=== PATIENT | male | born 1955 | race Two or more races ===

== ENCOUNTER 2022-09-10 23:10 | Inpatient (IN) | payer OTHER ==
[~2022-09-10] VITALS: Ht 177.8 cm; Wt 59.0 kg
[2022-09-10 23:47] LABS: BASOPHILS % (AUTO) 0.5 % (0.0-2.0); EOSINOPHILS % (AUTO) 6.3 % (1.0-6.0); HEMATOCRIT 42.3 % (41-53); HEMOGLOBIN 13.9 g/dL (13.5-17.5); LYMPHOCYTES # (AUTO) 2.6 K/uL (1.0-4.8); LYMPHOCYTES % (AUTO) 39.8 % (22.0-44.0); MEAN CORPUSCULAR HEMOGLOBIN 29.3 pg (26.0-34.0); MEAN CORPUSCULAR HGB CONC 32.8 G/dL (31.0-37.0); MEAN CORPUSCULAR VOLUME 89 fL (80-100); MONOCYTES # (AUTO) 0.7 K/uL (0.1-1.0); NEUTROPHILS # (AUTO) 2.8 K/uL (1.8-7.7); NEUTROPHILS % (AUTO) 43.4 % (40.0-70.0); PLATELET COUNT (AUTO) 245 K/uL (150-450); RED BLOOD CELL COUNT(AUTO) 4.75 MIL/uL (4.50-5.90); RED CELL DISTRIBUTION WIDTH 15.1 % (11.5-14.5)
[2022-09-11] LABS: ANION GAP 8 mmol/L (8-16); CALCIUM, TOTAL 9.6 mg/dL (8.8-10.5); CARBON DIOXIDE 31 mmol/L (22-29); CHLORIDE 101 mmol/L (98-107); CREATININE 1.17 mg/dL (0.60-1.30); GLOMERULAR FILTR. RATE CALC > 60 mL/min (>60); GLUCOSE,RANDOM 96 mg/dL (70-110); POTASSIUM 3.9 mmol/L (3.5-5.1); SODIUM SERUM 140 mmol/L (136-145)
[2022-09-11] MEDS ORDERED: ONDANSETRON HCL 4 MG/2 ML VIAL IVP ONE
[2022-09-11 00:06] LABS: ALANINE AMINOTRANSFERASE 32 U/L (12-78); ALBUMIN 3.7 g/dL (3.4-5.0); ALKALINE PHOSPHATASE 101 U/L (46-116); ASPARTATE AMINOTRANSFERASE 37 U/L (15-37); BILIRUBIN,TOTAL 0.4 mg/dL (0.1-1.0); LIPASE 93 U/L (73-393); TOTAL PROTEIN, SERUM 7.8 g/dL (6.4-8.2)
[2022-09-11] MEDS ORDERED: SODIUM CHLORIDE 0.9% 100 ML ONE (00:15)
[2022-09-11] MEDS ORDERED: IOHEXOL 350 MG/ML 100 ML VIAL ONE (00:15)
[2022-09-11 00:23] LABS: LACTIC ACID 0.7 mmol/L (0.4-2.0)
[2022-09-11] MEDS ORDERED: SODIUM CHLORIDE 0.9% 1,000 ML IV ONE ×3 (01:00)
[2022-09-11] MEDS ORDERED: METOCLOPRAMIDE HCL 5 MG/ML 2 ML VIAL IVP PRN (04:15)
[2022-09-11] MEDS: RINGERS SOLUTION,LACTATED 1,000 ML IV SCH ×2 (04:46→14:15)
[2022-09-11] MEDS: MORPHINE SULFATE 2 MG/ML SYRINGE IVP PRN ×2 (04:46→21:25)
[2022-09-11] MEDS: ONDANSETRON HCL 4 MG/2 ML VIAL IVP PRN (04:47)
[2022-09-11] MEDS ORDERED: IPRATROPIUM BROMIDE 0.5 MG/2.5 ML NEB SOLUTION NEB PRN (05:00)
[2022-09-11] MEDS ORDERED: ALBUTEROL SULFATE 2.5 MG/0.5 ML NEB SOLUTION NEB PRN (05:00)
[2022-09-11 05:04] LABS: APPEARANCE,URINE CLEAR (CLEAR); BILIRUBIN,URINE NEGATIVE (NEGATIVE); GLUCOSE, URINE (UA) NEGATIVE (NEGATIVE); KETONES,URINE NEGATIVE (NEGATIVE); LEUKOCYTE ESTERASE ,URINE NEGATIVE (NEGATIVE); NITRATE,URINE NEGATIVE (NEGATIVE); OCCULT BLOOD,URINE NEGATIVE (NEGATIVE); PH,URINE 6.5 (5.0-8.0); PROTEIN,URINE TRACE mg/dL (NEGATIVE); UROBILINOGEN,URINE <=1.0 mg/dL (<=1.0)
[2022-09-11 05:11] LABS: AMPHET/METH SCREEN,URINE NEGATIVE (NEGATIVE); BARBITURATE SCREEN, URINE NEGATIVE (NEGATIVE); BENZODIAZEPINES SCREEN,URINE NEGATIVE (NEGATIVE); CANNABINOID SCREEN,URINE NEGATIVE (NEGATIVE); COCAINE SCREEN,URINE NEGATIVE (NEGATIVE); METHADONE SCREEN, URINE NEGATIVE (NEGATIVE); OPIATE SCREEN,URINE NEGATIVE (NEGATIVE); PHENCYCLIDINE SCREEN,URINE NEGATIVE (NEGATIVE)
[2022-09-11 05:17] LABS: BACTERIA,URINE None Seen /HPF (None Seen); RBC,URINE None Seen /HPF (0-2); SQUAMOUS EPITHELIAL CELL,UR Rare /LPF (None Seen); WBC,URINE None Seen /HPF (0-5)
[2022-09-11] MEDS: HEPARIN SODIUM,PORCINE 5,000 UNITS/ML VIAL SQ SCH ×2 (07:15→16:00)
[2022-09-11 08:51] VITALS: BP 99/51
[2022-09-11] MEDS ORDERED: GADOTERATE MEGLUMINE 10 MMOL/20 ML VIAL IVP ONE (09:58)
[2022-09-11 15:15] VITALS: BP 110/62
[2022-09-11 20:55] VITALS: BP 90/51
[2022-09-12] VITALS (7 sets, daily range): BP systolic 65–121; BP diastolic 33–73
[2022-09-12] MEDS: RINGERS SOLUTION,LACTATED 1,000 ML IV SCH ×3 (00:09→17:59)
[2022-09-12] MEDS: HEPARIN SODIUM,PORCINE 5,000 UNITS/ML VIAL SQ SCH ×4 (00:09→23:51)
[2022-09-12] MEDS ORDERED: SODIUM CHLORIDE 0.9% 500 ML IV ONE ×2 (02:30→10:15)
[2022-09-12] MEDS ORDERED: CLINDAMYCIN 900 MG/D5% WATER 50 ML IV ONE (03:00)
[2022-09-12] MEDS: DOPamine 400MG/D5W[STANDARD] 250 ML IV PRN ×2 (03:49→20:19)
[2022-09-12] MEDS: ONDANSETRON HCL 4 MG/2 ML VIAL IVP PRN ×2 (04:15→16:15)
[2022-09-12 04:45] LABS: BASOPHILS % (AUTO) 0.8 % (0.0-2.0); HEMATOCRIT 39.8 % (41-53); HEMOGLOBIN 13.1 g/dL (13.5-17.5); LYMPHOCYTES # (AUTO) 3.5 K/uL (1.0-4.8); LYMPHOCYTES % (AUTO) 43.9 % (22.0-44.0); MEAN CORPUSCULAR HEMOGLOBIN 29.7 pg (26.0-34.0); MEAN CORPUSCULAR VOLUME 90 fL (80-100); MONOCYTES # (AUTO) 0.5 K/uL (0.1-1.0); MONOCYTES % (AUTO) 6.2 % (2.0-9.0); NEUTROPHILS # (AUTO) 3.5 K/uL (1.8-7.7); NEUTROPHILS % (AUTO) 44.1 % (40.0-70.0); PLATELET COUNT (AUTO) 200 K/uL (150-450); RED BLOOD CELL COUNT(AUTO) 4.42 MIL/uL (4.50-5.90); RED CELL DISTRIBUTION WIDTH 15.3 % (11.5-14.5)
[2022-09-12 04:55] LABS: ANION GAP 7 mmol/L (8-16); CALCIUM, TOTAL 8.7 mg/dL (8.8-10.5); CARBON DIOXIDE 28 mmol/L (22-29); CHLORIDE 104 mmol/L (98-107); CREATININE 0.84 mg/dL (0.60-1.30); GLOMERULAR FILTR. RATE CALC > 60 mL/min (>60); GLUCOSE,RANDOM 98 mg/dL (70-110); POTASSIUM 4.3 mmol/L (3.5-5.1); SODIUM SERUM 139 mmol/L (136-145)
[2022-09-12] MEDS ORDERED: NOREPINEPHRINE 8 MG/D5%-WATER 250 ML IV PRN (06:45)
[2022-09-12 10:23] LABS: BASOPHILS % (AUTO) 0.6 % (0.0-2.0); EOSINOPHILS % (AUTO) 1.9 % (1.0-6.0); HEMATOCRIT 39.5 % (41-53); LYMPHOCYTES # (AUTO) 1.6 K/uL (1.0-4.8); LYMPHOCYTES % (AUTO) 20.1 % (22.0-44.0); MEAN CORPUSCULAR HEMOGLOBIN 29.4 pg (26.0-34.0); MEAN CORPUSCULAR VOLUME 89 fL (80-100); MONOCYTES # (AUTO) 0.4 K/uL (0.1-1.0); MONOCYTES % (AUTO) 4.7 % (2.0-9.0); NEUTROPHILS # (AUTO) 5.7 K/uL (1.8-7.7); NEUTROPHILS % (AUTO) 72.7 % (40.0-70.0); PLATELET COUNT (AUTO) 212 K/uL (150-450); RED BLOOD CELL COUNT(AUTO) 4.43 MIL/uL (4.50-5.90); RED CELL DISTRIBUTION WIDTH 14.7 % (11.5-14.5)
[2022-09-12] MEDS ORDERED: IOHEXOL 350 MG/ML 100 ML VIAL ONE (10:26)
[2022-09-12] MEDS ORDERED: SODIUM CHLORIDE 0.9% 100 ML ONE (10:26)
[2022-09-12 10:31] LABS: ANION GAP 6 mmol/L (8-16); CALCIUM, TOTAL 8.9 mg/dL (8.8-10.5); CARBON DIOXIDE 28 mmol/L (22-29); CHLORIDE 104 mmol/L (98-107); CREATININE 0.77 mg/dL (0.60-1.30); GLOMERULAR FILTR. RATE CALC > 60 mL/min (>60); GLUCOSE,RANDOM 107 mg/dL (70-110); POTASSIUM 3.9 mmol/L (3.5-5.1); SODIUM SERUM 138 mmol/L (136-145)
[2022-09-12 10:37] LABS: ALANINE AMINOTRANSFERASE 30 U/L (12-78); ALBUMIN 3.2 g/dL (3.4-5.0); ALKALINE PHOSPHATASE 92 U/L (46-116); ASPARTATE AMINOTRANSFERASE 34 U/L (15-37); BILIRUBIN,TOTAL 0.7 mg/dL (0.1-1.0); LIPASE 41 U/L (73-393); TOTAL PROTEIN, SERUM 6.9 g/dL (6.4-8.2)
[2022-09-12] MEDS ORDERED: *CLINICAL-LEVOFLOXACIN IVPB DOSING CLINICAL ONE (11:00)
[2022-09-12] MEDS: ALBUMIN HUMAN 25%-25GM/100ML 100 ML IV SCH ×2 (12:15→18:43)
[2022-09-12] MEDS ORDERED: CLINDAMYCIN 600 MG/D5% WATER 50 ML IV SCH (13:00)
[2022-09-12] MEDS: LEVOFLOXACIN 750 MG/D5% WATER 150 ML IV SCH (13:21)
[2022-09-12] MEDS: CLINDAMYCIN 900 MG/D5% WATER 50 ML IV SCH ×2 (13:21→20:28)
[2022-09-12] MEDS: ETHYL ALCOHOL 62% ANTISEPTIC NASAL SANITIZER 0.6 ML AMPUL NASAL SCH (21:28)
[2022-09-13] VITALS: BP 117/76
[2022-09-13] MEDS: ALBUMIN HUMAN 25%-25GM/100ML 100 ML IV SCH ×3 (03:00→18:44)
[2022-09-13 04:00] VITALS: BP 113/64
[2022-09-13] MEDS: CLINDAMYCIN 900 MG/D5% WATER 50 ML IV SCH ×3 (05:30→21:05)
[2022-09-13 05:35] LABS: BASOPHILS % (AUTO) 0.7 % (0.0-2.0); HEMOGLOBIN 12.1 g/dL (13.5-17.5); LYMPHOCYTES # (AUTO) 2.2 K/uL (1.0-4.8); LYMPHOCYTES % (AUTO) 33.3 % (22.0-44.0); MEAN CORPUSCULAR HEMOGLOBIN 29.8 pg (26.0-34.0); MEAN CORPUSCULAR HGB CONC 33.6 G/dL (31.0-37.0); MEAN CORPUSCULAR VOLUME 89 fL (80-100); MONOCYTES # (AUTO) 0.6 K/uL (0.1-1.0); MONOCYTES % (AUTO) 8.7 % (2.0-9.0); NEUTROPHILS # (AUTO) 3.6 K/uL (1.8-7.7); NEUTROPHILS % (AUTO) 53.3 % (40.0-70.0); PLATELET COUNT (AUTO) 195 K/uL (150-450); RED BLOOD CELL COUNT(AUTO) 4.06 MIL/uL (4.50-5.90); RED CELL DISTRIBUTION WIDTH 14.6 % (11.5-14.5)
[2022-09-13 05:44] LABS: ANION GAP 8 mmol/L (8-16); CALCIUM, TOTAL 9.4 mg/dL (8.8-10.5); CARBON DIOXIDE 28 mmol/L (22-29); CHLORIDE 102 mmol/L (98-107); CREATININE 0.86 mg/dL (0.60-1.30); GLOMERULAR FILTR. RATE CALC > 60 mL/min (>60); GLUCOSE,RANDOM 101 mg/dL (70-110); POTASSIUM 3.7 mmol/L (3.5-5.1); SODIUM SERUM 138 mmol/L (136-145)
[2022-09-13] MEDS: RINGERS SOLUTION,LACTATED 1,000 ML IV SCH ×2 (06:38→17:27)
[2022-09-13 08:00] VITALS: BP 108/65
[2022-09-13] MEDS: HEPARIN SODIUM,PORCINE 5,000 UNITS/ML VIAL SQ SCH ×2 (08:00→15:10)
[2022-09-13] MEDS: ETHYL ALCOHOL 62% ANTISEPTIC NASAL SANITIZER 0.6 ML AMPUL NASAL SCH ×2 (08:08→21:05)
[2022-09-13] MEDS: NYSTATIN 500,000 UNITS/5 ML SUSPENSION UDCUP PO SCH ×2 (08:08→15:10)
[2022-09-13] MEDS: LEVOFLOXACIN 750 MG/D5% WATER 150 ML IV SCH (10:07)
[2022-09-13] MEDS ORDERED: SODIUM CHLORIDE 0.9% 250 ML IV ONE (10:15)
[2022-09-13 12:00] VITALS: BP 84/61
[2022-09-13] MEDS ORDERED: MIDAZOLAM HCL 2 MG/2 ML VIAL IVP ONE (12:00)
[2022-09-13] MEDS ORDERED: LIDOCAINE/PF 2% 5 ML VIAL IM ONE (12:00)
[2022-09-13] MEDS ORDERED: SUCCINYLCHOLINE CHLORIDE 20 MG/ML 10 ML VIAL IVP ONE (12:00)
[2022-09-13] MEDS ORDERED: ONDANSETRON HCL 4 MG/2 ML VIAL IVP ONE (12:00)
[2022-09-13] MEDS ORDERED: PROPOFOL 1% 20 ML VIAL IVP ONE (12:00)
[2022-09-13] MEDS ORDERED: FentaNYL CITRATE PF 100 MCG/2 ML VIAL IVP ONE (12:00)
[2022-09-13] MEDS ORDERED: IOTHALAMATE MEGLUMINE 600 MG/ML 50 ML VIAL IVP ONE (14:49)
[2022-09-13] MEDS ORDERED: SODIUM CHLORIDE 0.9% 1,000 ML ONE (15:34)
[2022-09-13 20:00] VITALS: BP 103/55
[2022-09-14] MEDS: HEPARIN SODIUM,PORCINE 5,000 UNITS/ML VIAL SQ SCH ×3 (00:02→15:54)
[2022-09-14] MEDS: NYSTATIN 500,000 UNITS/5 ML SUSPENSION UDCUP PO SCH ×4 (00:02→23:31)
[2022-09-14] MEDS ORDERED: SODIUM CHLORIDE 0.9% 250 ML IV ONE (01:29)
[2022-09-14] MEDS: RINGERS SOLUTION,LACTATED 1,000 ML IV SCH (02:19)
[2022-09-14] MEDS: ALBUMIN HUMAN 25%-25GM/100ML 100 ML IV SCH ×3 (03:21→18:02)
[2022-09-14 04:00] VITALS: BP 87/58
[2022-09-14] MEDS: CLINDAMYCIN 900 MG/D5% WATER 50 ML IV SCH ×3 (05:03→20:42)
[2022-09-14 05:57] LABS: BASOPHILS % (AUTO) 0.2 % (0.0-2.0); EOSINOPHILS % (AUTO) 3.6 % (1.0-6.0); HEMATOCRIT 33.6 % (41-53); HEMOGLOBIN 11.2 g/dL (13.5-17.5); LYMPHOCYTES # (AUTO) 2.1 K/uL (1.0-4.8); LYMPHOCYTES % (AUTO) 23.8 % (22.0-44.0); MEAN CORPUSCULAR HEMOGLOBIN 29.5 pg (26.0-34.0); MEAN CORPUSCULAR HGB CONC 33.3 G/dL (31.0-37.0); MEAN CORPUSCULAR VOLUME 89 fL (80-100); MONOCYTES # (AUTO) 0.8 K/uL (0.1-1.0); MONOCYTES % (AUTO) 8.8 % (2.0-9.0); NEUTROPHILS # (AUTO) 5.5 K/uL (1.8-7.7); NEUTROPHILS % (AUTO) 63.6 % (40.0-70.0); PLATELET COUNT (AUTO) 162 K/uL (150-450); RED BLOOD CELL COUNT(AUTO) 3.79 MIL/uL (4.50-5.90); RED CELL DISTRIBUTION WIDTH 14.6 % (11.5-14.5)
[2022-09-14] MEDS ORDERED: SODIUM CHLORIDE 0.9% 500 ML IV ONE (07:27)
[2022-09-14] MEDS ORDERED: BUPIVACAINE HCL/PF 0.5% 30 ML VIAL ONE (07:46)
[2022-09-14] MEDS ORDERED: LIDOCAINE 2%/EPI 1:200,000/PF 20 ML VIAL ONE (07:46)
[2022-09-14] MEDS ORDERED: IOHEXOL 240 MG/ML 20 ML VIAL ONE (07:47)
[2022-09-14] MEDS ORDERED: SODIUM CHLORIDE 0.9% 0 ML ONE (07:47)
[2022-09-14 08:00] VITALS: BP 94/60
[2022-09-14] MEDS ORDERED: RINGERS SOLUTION,LACTATED 1,000 ML IV ONE (08:13)
[2022-09-14] MEDS: ETHYL ALCOHOL 62% ANTISEPTIC NASAL SANITIZER 0.6 ML AMPUL NASAL SCH ×2 (09:00→20:42)
[2022-09-14] MEDS ORDERED: IBUPROFEN 800 MG TABLET PO PRN (10:45)
[2022-09-14] MEDS ORDERED: ONDANSETRON HCL 4 MG/2 ML VIAL IVP PRN (10:45)
[2022-09-14] MEDS ORDERED: MORPHINE SULFATE 2 MG/ML SYRINGE IVP PRN (10:45)
[2022-09-14] MEDS ORDERED: HYDROCODONE/ACETAMINOPHEN 5-325 MG TABLET PO PRN (10:45)
[2022-09-14] MEDS ORDERED: ACETAMINOPHEN 500 MG TABLET PO PRN (10:45)
[2022-09-14 12:00] VITALS: BP 97/60
[2022-09-14] MEDS: LEVOFLOXACIN 750 MG/D5% WATER 150 ML IV SCH (12:26)
[2022-09-14 16:00] VITALS: BP 91/55
[2022-09-14 20:00] VITALS: BP 96/55
[2022-09-14 22:55] VITALS: BP 103/62
[2022-09-15] VITALS (7 sets, daily range): BP systolic 91–151; BP diastolic 52–69
[2022-09-15] MEDS: HEPARIN SODIUM,PORCINE 5,000 UNITS/ML VIAL SQ SCH ×3 (00:34→16:23)
[2022-09-15] MEDS: ALBUMIN HUMAN 25%-25GM/100ML 100 ML IV SCH ×3 (02:51→19:38)
[2022-09-15] MEDS: CLINDAMYCIN 900 MG/D5% WATER 50 ML IV SCH ×3 (05:01→20:39)
[2022-09-15 05:47] LABS: BASOPHILS % (AUTO) 0.1 % (0.0-2.0); EOSINOPHILS % (AUTO) 0.1 % (1.0-6.0); HEMATOCRIT 30.3 % (41-53); HEMOGLOBIN 10.3 g/dL (13.5-17.5); LYMPHOCYTES # (AUTO) 1.4 K/uL (1.0-4.8); LYMPHOCYTES % (AUTO) 15.9 % (22.0-44.0); MEAN CORPUSCULAR HEMOGLOBIN 30.2 pg (26.0-34.0); MEAN CORPUSCULAR VOLUME 89 fL (80-100); MONOCYTES # (AUTO) 0.6 K/uL (0.1-1.0); MONOCYTES % (AUTO) 6.6 % (2.0-9.0); NEUTROPHILS # (AUTO) 6.9 K/uL (1.8-7.7); NEUTROPHILS % (AUTO) 77.3 % (40.0-70.0); PLATELET COUNT (AUTO) 144 K/uL (150-450); RED BLOOD CELL COUNT(AUTO) 3.42 MIL/uL (4.50-5.90); RED CELL DISTRIBUTION WIDTH 15.1 % (11.5-14.5)
[2022-09-15 06:23] LABS: CARBON DIOXIDE 25 mmol/L (22-29); CHLORIDE 102 mmol/L (98-107); SODIUM SERUM 138 mmol/L (136-145)
[2022-09-15 06:24] LABS: ALANINE AMINOTRANSFERASE 18 U/L (12-78); ALBUMIN 4.4 g/dL (3.4-5.0); ALKALINE PHOSPHATASE 55 U/L (46-116); ANION GAP 11 mmol/L (8-16); ASPARTATE AMINOTRANSFERASE 20 U/L (15-37); BILIRUBIN,TOTAL 0.8 mg/dL (0.1-1.0); CALCIUM, TOTAL 9.8 mg/dL (8.8-10.5); CREATININE 0.96 mg/dL (0.60-1.30); GLOMERULAR FILTR. RATE CALC > 60 mL/min (>60); GLUCOSE,RANDOM 139 mg/dL (70-110); THYROID STIMULATING HORMONE 1.45 uIU/mL (0.36-3.74); TOTAL PROTEIN, SERUM 6.8 g/dL (6.4-8.2)
[2022-09-15] MEDS ORDERED: EPHEDrine SULFATE 50 MG/ML VIAL IM ONE (06:33)
[2022-09-15] MEDS ORDERED: PROPOFOL 1% 20 ML VIAL IVP ONE (06:33)
[2022-09-15] MEDS ORDERED: DEXAMETHASONE SOD PHOS 4 MG/ML VIAL IVP ONE (06:33)
[2022-09-15] MEDS ORDERED: 0.9% SODIUM CHLORIDE 10 ML VIAL IVP ONE (06:33)
[2022-09-15] MEDS ORDERED: FentaNYL CITRATE PF 100 MCG/2 ML VIAL IVP ONE (06:33)
[2022-09-15] MEDS ORDERED: GLYCOPYRROLATE 0.2 MG/ML VIAL IM ONE (06:33)
[2022-09-15] MEDS ORDERED: MIDAZOLAM HCL 2 MG/2 ML VIAL IVP ONE (06:33)
[2022-09-15] MEDS ORDERED: KETOROLAC TROMETHAMINE 60 MG/2 ML VIAL IM ONE (06:33)
[2022-09-15] MEDS ORDERED: ONDANSETRON HCL 4 MG/2 ML VIAL IVP ONE (06:33)
[2022-09-15] MEDS ORDERED: ROCURONIUM BROMIDE 10 MG/ML 5 ML VIAL IVP ONE (06:33)
[2022-09-15] MEDS ORDERED: LIDOCAINE/PF 2% 5 ML VIAL IM ONE (06:33)
[2022-09-15] MEDS: ETHYL ALCOHOL 62% ANTISEPTIC NASAL SANITIZER 0.6 ML AMPUL NASAL SCH ×2 (07:48→20:39)
[2022-09-15] MEDS: NYSTATIN 500,000 UNITS/5 ML SUSPENSION UDCUP PO SCH ×2 (07:48→16:22)
[2022-09-15] MEDS: LEVOFLOXACIN 750 MG/D5% WATER 150 ML IV SCH (10:58)
[2022-09-15] MEDS ORDERED: SODIUM CHLORIDE 0.9% 250 ML IV ONE (20:38)
[2022-09-16] MEDS: NYSTATIN 500,000 UNITS/5 ML SUSPENSION UDCUP PO SCH ×2 (00:19→08:00)
[2022-09-16 00:29] VITALS: BP 100/74
[2022-09-16] MEDS: ALBUMIN HUMAN 25%-25GM/100ML 100 ML IV SCH (02:26)
[2022-09-16] MEDS: CLINDAMYCIN 900 MG/D5% WATER 50 ML IV SCH ×2 (05:07→13:00)
[2022-09-16 06:44] VITALS: BP 99/54
[2022-09-16 07:51] VITALS: BP 95/53
[2022-09-16] MEDS: HEPARIN SODIUM,PORCINE 5,000 UNITS/ML VIAL SQ SCH ×2 (08:31)
[2022-09-16] MEDS: ETHYL ALCOHOL 62% ANTISEPTIC NASAL SANITIZER 0.6 ML AMPUL NASAL SCH (08:32)
[2022-09-16] MEDS: LEVOFLOXACIN 750 MG/D5% WATER 150 ML IV SCH (11:00)
== END 2022-09-16 15:40 | DRG 853 ==
LOC: EMS 23:10 → 5S 09-11 06:25 → ICU 09-12 03:40 → 5S 09-15 18:10
PROVIDERS: ADMIT Internal Medicine; ATTEND Internal Medicine
PROC: 5A1935Z Respiratory Ventilation, Less than 24 Consecutive Hours (ICD-10-PCS; principal; 2022-09-12)
PROC: 0BH17EZ Insertion of Endotracheal Airway into Trachea, Via Natural or Artificial Opening (ICD-10-PCS; 2022-09-12)
PROC: 06HY33Z Insertion of Infusion Device into Lower Vein, Percutaneous Approach (ICD-10-PCS; 2022-09-12)
PROC: B54BZZA Ultrasonography of Right Lower Extremity Veins, Guidance (ICD-10-PCS; 2022-09-12)
PROC: 0FC98ZZ Extirpation of Matter from Common Bile Duct, Via Natural or Artificial Opening Endoscopic (ICD-10-PCS; 2022-09-13)
PROC: BF101ZZ Fluoroscopy of Bile Ducts using Low Osmolar Contrast (ICD-10-PCS; 2022-09-13)
PROC: 0FT44ZZ Resection of Gallbladder, Percutaneous Endoscopic Approach (ICD-10-PCS; 2022-09-14)
DX: A41.9 Sepsis, unspecified organism (principal); E43 Unspecified severe protein-calorie malnutrition; J96.01 Acute respiratory failure with hypoxia; J69.0 Pneumonitis due to inhalation of food and vomit; I81 Portal vein thrombosis; Z68.1 Body mass index [BMI] 19.9 or less, adult; E87.3 Alkalosis; I69.351 Hemiplegia and hemiparesis following cerebral infarction affecting right dominant side; B37.0 Candidal stomatitis; K80.61 Calculus of gallbladder and bile duct with cholecystitis, unspecified, with obstruction; R79.89 Other specified abnormal findings of blood chemistry; I95.9 Hypotension, unspecified; J44.9 Chronic obstructive pulmonary disease, unspecified; E86.9 Volume depletion, unspecified; Z88.0 Allergy status to penicillin; Z87.891 Personal history of nicotine dependence
CPT/HCPCS: 70450; 71045; 74177; 74178; 74183; 80048; 80053; 80307; 81001; 83605; 83615; 83690; 83735; 83880; 84134; 84443; 84484; 85025; 85730; 87040; 87081; 88304; 92507; 92523; 92526; 93005; 93306; 97163; 97166; 97535; 99285; G0378; G0480; J0330; J1100; J1265; J1644; J1885; J1956; J2250; J2270; J2405; J2704; J2765; J3010; J3490; J7030; J7040; J7050; J7120; P9046; Q9961; Q9966; Q9967; 36415-L1; 36415-TC; Z7610